=== PATIENT | male | born 1965 | race Caucasian/White ===

== ENCOUNTER 2021-05-26 17:42 | Emergency (ER) | payer MEDICARE, MEDICAID, SELFPAY ==
[2021-05-26] VITALS (26 sets, daily range): BP systolic 176–217; BP diastolic 98–121; PULSE 61–86; RESP 17–28; TEMP 36.4; O2SAT 98–100
--- NOTE | ~2021-05-26 | CT_ITS ---
EXAMINATION: CT abdomen pelvis w con DATE: 05/26/2021 20:46 INDICATION: Generalized abdominal pain. Nausea, vomiting, diarrhea. TECHNIQUE: Computed tomography (CT) of the abdomen and pelvis was performed with 100 mL Omnipaque 350 intravenous contrast. Automated exposure control and iterative reconstruction technique were employe d. The dose-length product was 397.02 mGy-cm. COMPARISON: None. FINDINGS: The visualized portions of the lung bases demonstrate mild atelectasis. A calcified right l sunshine nodule and calcified right hilar lymph nodes are consistent with old granulomatous disease. No pl eural effusion. The heart size is normal. There are coronary artery calcifications. No pericardial ef fusion. The liver, gallbladder, spleen, pancreas, and adrenal glands are normal. There is cortical th inning of the kidneys. There are cysts in the kidneys measuring up to 13 mm on the right. There are n o dilated loops of bowel. The appendix is normal. There is calcified atherosclerosis of the aorta and many of the other arteries. There is mild stenosis of celiac axis and moderate stenosis of superior mesenteric artery. There is no significant stenosis of inferior mesenteric artery. There are no patho logically enlarged lymph nodes. There is no free intraperitoneal fluid. 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 There is internal fixation of pr oximal right femur. There is osteonecrosis of the femoral heads bilaterally. There is severe lumbar s pondylosis. IMPRESSION: 1. No specific etiology for the patient's symptoms. Reviewed, dictated and finalized at location [facility] [employer]
[2021-05-26 18:22] LABS: Basophils Percent Auto 0.4 % (0.2-1.2); Eosinophils Percent Auto 0.4 % (0-4.4); Hemoglobin 15.5 g/dL (14.0-18.0); Immature Granulocyte Absolute 0.02 K/mm3 (0.00-0.031); Immature Granulocyte Percent A 0.2 % (0-0.5); Immature Platelet Fraction Pct 3.5 % (0.9-11.2); Lymphocytes Absolute Auto 1.57 K/mm3 (0.9-3.2); Lymphocytes Percent Auto 15.4 % (18.3-44.2); Mean Corpuscular HGB Conc 35.2 g/dl (32-36); Mean Corpuscular Hemoglobin 32.5 pg (26-34); Mean Corpuscular Volume 92.2 fl (80-100); Mean Platelet Volume 9.8 fl (7.4-10.4); Monocytes Absolute Auto 0.8 K/mm3 (0.1-0.6); Monocytes Percent Auto 7.3 % (2.6-8.5); Neutrophils Absolute Auto 7.8 K/mm3 (1.3-6.7); Neutrophils Percent Auto 76.3 % (45.5-73.1); Platelet Count Result 319 k/mm3 (150-375); Red Blood Count 4.77 M/mm3 (4.6-6.20); Red Cell Distribution Width 12.9 % (11.5-14.5); White Blood Count 10.2 K/mm3 (4.5-10.0)
[2021-05-26 18:32] LABS: Alanine Aminotransferase 17 U/L (4-50); Albumin Level 4.8 g/dL (3.5-5.1); Alkaline Phosphatase 113 U/L (38-126); Anion Gap 9 mmol/L (8-16); Aspartate Amino Transferase 27 U/L (17-59); Bilirubin,Total 0.9 mg/dL (0.2-1.3); Blood Urea Nitrogen 19 mg/dL (9-20); Calcium 9.7 mg/dL (8.4-10.2); Carbon Dioxide 23 mmol/L (22-30); Chloride 101 mmol/L (98-107); Estimated CRCL calculation 59 ml/min; Estimated Glomerular Filt Rate > 60; Glucose 103 mg/dL (65-110); Lipase 158 U/L (23-300); Potassium 4.5 mmol/L (3.4-5.0); Sodium 133 mmol/L (137-145)
[2021-05-26 18:56] LABS: Add Urine Microscopic? YES; Appearance Urine Clear (Clear); Bilirubin Urine Negative (Negative); Blood Urine 1+ (Negative); Color Urine Yellow (Yellow); Glucose Urine UA Negative (Negative); Ketones Urine Negative (Negative); Leukocyte Esterase Ur Negative LEU/UL (Negative); Mucus Urine Rare /lpf; Nitrate Urine Negative (Negative); Protein Urine 3+ mg/dL (Negative); Specific Grav Ur 1.019 (1.001-1.035); Squamous Epithelial Cell Urine Few /hpf (Few); Urobilinogen Urine Negative mg/dL (<2.0); WBC Urine 0-3 /hpf
--- NOTE | 2021-05-26 20:06 | ED.ABDPAIN ---
HPI - Abdominal Pain General Chief Complaint: Abdominal Pain Stated Complaint: weakness/nausea Time Seen by Provider: 05/26/21 20:01 Source: RN notes reviewed History of Present Illness HPI narrative: Patient presents to emergency department from home for abdominal pain. Patient states symptoms began 2 days ago states abdominal pain is located in the bilateral lower abdomen described as aching in nature associated with nausea and vomiting as well as diarrhea. Denies any fevers or chills chest pain or shortness of breath states he is not take anything for the symptoms. States he is felt generally weak with the symptoms Related Data Allergies Allergy/AdvReac Type Severity Reaction Status Date / Time No Known Allergies Allergy Verified 05/26/21 20:19 Review of Systems Review of Systems: Gen.: Denies fevers or chills ENT: Denies congestion Respiratory: Denies shortness of breath or cough CV: Denies chest pain or palpitations GI: See HPI Musculoskeletal: Denies back pain or muscle pain Neuro: Denies numbness, tingling, or's generalized weakness Skin: Denies rash Except as documented, all other systems reviewed and negative [facility] Past Medical History Medical History (Updated 05/26/21 @ 22:23 by Pierce Peguero DO) COPD (chronic obstructive pulmonary disease) Social History Social History (Updated 05/26/21 @ 20:07 by Pierce Peguero DO) Smoking status: Current every day smoker Exam Narrative: APPEARANCE: No acute distress, nontoxic, resting in bed HEENT: Normocephalic, atraumatic, OMM RESPIRATORY: No respiratory distress, clear to auscultation bilaterally with no rhonchi wheezing or rales CARDIOVASCULAR: RRR s murmur ABDOMINAL: Soft nondistended palpation right lower quadrant left lower quadrant no tenderness right upper quadrant left lower quadrant no rebound or guarding MUSCULOSKELETAl: Moves all extremities. No clubbing, cyanosis or edema. NEURO: Awake and alert. Following commands, speech normal, no focal deficits SKIN:: Warm, dry. Normal Color PSYCHIATRIC: Normal affect/mood Course Course Emergency Course: Patient states he is normally on amlodipine for his blood pressure states he is not been able to take it for the past several days we will give IV blood pressure medication at this time Patient states he is feeling much better able to drink in ED with no emesis patient states he is ready for discharge at this time Patient states that they are feeling much better at this time. States abdominal pain has improved. Discussed with patient results of workup and diagnosis. Discussed need for follow-up with primary care physician, reasons to return to the emergency department in proper use of medication. Patient understands and agrees to current treatment plan Vital Signs Vital signs: Vital Signs Temperature 97.6 F 05/26/21 18:06 Pulse Rate 76 05/26/21 18:06 Respiratory Rate 20 05/26/21 18:06 Blood Pressure 200/98 H 05/26/21 18:06 Pulse Oximetry 98 05/26/21 18:06 Temperature 97.6 F 05/26/21 18:06 Pulse Rate 74 05/26/21 22:16 Respiratory Rate 25 H 05/26/21 22:15 Blood Pressure 187/102 H 05/26/21 22:16 Pulse Oximetry 100 05/26/21 22:16 MDM - Abdominal Pain Lab Data Result diagrams: 05/26/21 18:15 05/26/21 18:15 Labs: Lab Results 05/26/21 05/26/21 05/26/21 Range/Units 18:15 18:15 18:42 WBC 10.2 H (4.5-10.0) K/mm3 RBC 4.77 (4.6-6.20) M/mm3 Hgb 15.5 (14.0-18.0) g/dL Hct 44.0 (42.0-52.0) % MCV 92.2 (80-100) fl MCH 32.5 (26-34) pg MCHC 35.2 (32-36) g/dl RDW 12.9 (11.5-14.5) % Plt Count 319 (150-375) k/mm3 MPV 9.8 (7.4-10.4) fl Immature Gran % (Auto) 0.2 (0-0.5) % Neut % (Auto) 76.3 H (45.5-73.1) % Lymph % (Auto) 15.4 L (18.3-44.2) % [place] % (Auto) 7.3 (2.6-8.5) % Eos % (Auto) 0.4 (0-4.4) % Baso % (Auto) 0.4 (0.2-1.2) % Lymph # (Auto) 1.57 (0.9-3.2) K/
[2021-05-26] MEDS: SODIUM CHLORIDE 0.9% IV 1,000 ML 999 ML IV CONT (20:20)
[2021-05-26] MEDS: KETOROLAC 30 MG/ML VIAL (*BKC) IV PUSH (20:20)
[2021-05-26] MEDS: ONDANSETRON INJ 4 MG/2 ML VIAL IV PUSH (20:20)
--- NOTE | 2021-05-26 21:39 | PC.NURSE ---
Patient and concerned for bp, ERP notified of patient concern. 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
[2021-05-26] MEDS: hydrALAZINE HCL 20 MG/ML VIAL 10 MG IV PUSH (21:51)
--- NOTE | 2021-05-26 22:20 | PC.NURSE ---
Pt used call light to let this RN know he is ready to go home. ED MD updated.
== END 2021-05-26 22:49 | disposition home or self-care (01) ==
PROVIDERS: Emergency Provider Emergency Medicine; PCP Emergency Medicine
DX: R10.9 Unspecified abdominal pain (principal); R11.2 Nausea with vomiting, unspecified; I10 Essential (primary) hypertension; J44.9 Chronic obstructive pulmonary disease, unspecified; F17.210 Nicotine dependence, cigarettes, uncomplicated
CPT/HCPCS: 36415; 74177; 80053; 81001; 83690; 85025; 85055; 96361; 96374; 96375; 99284; J0360; J1885; J2405; J7030; Q9967

== ENCOUNTER → 2021-06-18 10:03 | Outpatient (CLI) | payer MEDICARE, MEDICAID, SELFPAY ==
--- NOTE | ~2021-06-18 | CT_ITS ---
EXAMINATION: CT lung screening DATE: 06/18/2021 10:22 INDICATION: Personal history of nicotine dependence, current smoker with 40 pack year history TECHNIQUE: Computed tomography (CT) of the chest was performed without intravenous contrast. The dose -length product (DLP) was 60.45 mGy-cm. Automated exposure control and iterative reconstruction techn ique were employed. COMPARISON: None FINDINGS: There is a 3 mm nodule in the left lower lobe on image 100. There is mild emphysema. The kelly ngs are free of acute opacities. There is no pleural effusion or pneumothorax. Calcified pulmonary no dules and calcified right hilar lymph nodes are consistent with old granulomatous disease. No patholo gically enlarged thoracic lymph nodes are identified. The heart size is normal. Calcified coronary ar loulou atherosclerosis is noted. There is moderate thoracic spondylosis. Again noted is chronic occlusi on of the inferior vena cava with enlarged azygos and hemiazygos collaterals. 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 IMPRESSION: 1. Lung-RADS category 2: Benign appearance or behavior. Continue annual screening with noncontrast lo w-dose chest CT in 12 months. Reviewed, dictated and finalized at location [facility]. [facility] IMPRESSION: 1. Lung-RADS category 2: Benign appearance or behavior. Continue annual screeni ng with noncontrast low-dose chest CT in 12 months.
== END ==
PROVIDERS: PCP Emergency Medicine; Visit Provider Emergency Medicine
DX: Z12.2 Encounter for screening for malignant neoplasm of respiratory organs (principal); F17.210 Nicotine dependence, cigarettes, uncomplicated
CPT/HCPCS: 71271